=== PATIENT | female | born 1960 | race Caucasian/White ===

== ENCOUNTER 2025-02-23 10:30 | Emergency (ER) | payer OTHER ==
[~2025-02-23] VITALS: Ht 154.9 cm; Wt 56.2 kg
[2025-02-23] MEDS ORDERED: LISD10CA PO (10:45)
[2025-02-23] MEDS ORDERED: ONDANSETRON 4 MG/2 ML VIAL ONE (10:50)
[2025-02-23] MEDS: IV NORMAL SALINE 1000 ML BAG IV ONE (10:54)
[2025-02-23] MEDS ORDERED: ONDANSETRON HCL 4 MG TABLET ONE (10:56)
[2025-02-23] MEDS ORDERED: TDAP DIPH,PERTUSS,TET VAC/PF 0.5 ML DISP.SYRIN IM ONE ×2 (10:57→11:03)
[2025-02-23 11:00] LABS: PLATELET COUNT (AUTO) 221 K/uL (179-408); RED BLOOD CELL COUNT(AUTO) 4.57 MIL/uL (3.63-4.92); RED CELL DISTRIBUTION WIDTH 14.4 % (12.3-17.7); WHITE BLOOD COUNT (AUTO) 5.1 K/uL (3.8-11.8)
[2025-02-23] MEDS: ONDANSETRON HCL 4 MG TABLET PO ONE (11:00)
[2025-02-23] MEDS: TDAP DIPH,PERTUSS,TET VAC/PF 0.5 ML DISP.SYRIN IM ONE (11:05)
[2025-02-23 11:11] LABS: CREATININE 0.6 mg/dL (0.6-1.3); SODIUM SERUM 142 mmol/L (136-145); UREA NITROGEN, BLOOD 28 mg/dL (7-18)
[2025-02-23 11:18] LABS: ASPARTATE AMINOTRANSFERASE 10 U/L (15-37); TOTAL PROTEIN, SERUM 6.6 g/dL (6.4-8.2)
[2025-02-23] MEDS ORDERED: ONDA4TAB5 PO (12:07)
[2025-02-23 12:37] VITALS: BP 122/73; TEMP 97.7; O2SAT 100
== END 2025-02-23 12:37 | disposition home or self-care (01) ==
LOC: ER 10:30
DX: S01.81XA Laceration without foreign body of other part of head, initial encounter (principal); S80.00XA Contusion of unspecified knee, initial encounter; R55 Syncope and collapse; R11.0 Nausea; R07.9 Chest pain, unspecified; R00.1 Bradycardia, unspecified; Z79.899 Other long term (current) drug therapy; Z96.651 Presence of right artificial knee joint; Z86.79 Personal history of other diseases of the circulatory system; X58.XXXA Exposure to other specified factors, initial encounter; Y93.73 Activity, racquet and hand sports; Y92.89 Other specified places as the place of occurrence of the external cause; Y99.8 Other external cause status
CPT/HCPCS: 12011; 36415; 71045; 80048; 80076; 83735; 84484; 85025; 90471; 90715; 93005; 96360; 99285; J7040; A4606; A4663; J2405; Q0162